=== PATIENT | male | born 1935 | race African-American/Black ===

== ENCOUNTER 2018-10-08 08:10 | Inpatient (IN) | payer MEDICARE, MEDICAID ==
[~2018-10-08] VITALS: Ht 162.6 cm; Wt 58.1 kg
[2018-10-08] MEDS ORDERED: HYDROCODONE/ACETAMINOPHEN 5/325MG TABLET PO ONE (09:15)
[2018-10-08 10:00] LABS: BASOPHILS % 0.6 % (0.0-2.0); EOSINOPHILS % 10.3 % (0.0-5.0); HEMATOCRIT. 37.7 % (42.0-52.0); HEMOGLOBIN. 12.2 g/dL (14.0-18.0); LYMPHOCYTES % 10.6 % (20.0-50.0); MEAN CORPUSCULAR HEMOGLOBIN 33.1 pg (28.0-32.0); MEAN CORPUSCULAR VOLUME 102.1 fL (80.0-94.0); MONOCYTES % 7.3 % (2.0-8.0); NEUTROPHILS % 71.2 % (40.0-76.0); PLATELET 161 x1000/uL (130-400); RED CELL DISTRIBUTION WIDTH 14.7 % (11.6-14.6)
[2018-10-08 10:05] LABS: CHLORIDE 101 mEq/L (98-107)
[2018-10-08 22:00] VITALS: BP 159/65
[2018-10-08] MEDS ORDERED: ONDANSETRON HCL 4MG/2ML INJ IV PRN (22:45)
[2018-10-08] MEDS ORDERED: MORPHINE SULFATE 4 MG/ML CPJ (NOT FOR IM USE) IV PRN (22:45)
[2018-10-08] MEDS ORDERED: HYDROCODONE/ACETAMINOPHEN 5/325MG TABLET PO PRN (22:45)
[2018-10-08] MEDS ORDERED: HYDROCODONE/ACETAMINOPHEN 10/325MG TABLET PO PRN (22:45)
[2018-10-08] MEDS ORDERED: ENOXAPARIN 30MG/0.3ML SYR SUBCUT SCH (23:00)
[2018-10-09 00:24] VITALS: BP 123/58
[2018-10-09 04:00] VITALS: BP 107/53
[2018-10-09 08:00] VITALS: BP 134/56
[2018-10-09 08:02] LABS: BASOPHILS % 1.1 % (0.0-2.0); EOSINOPHILS % 9.3 % (0.0-5.0); HEMATOCRIT. 39.3 % (42.0-52.0); HEMOGLOBIN. 12.6 g/dL (14.0-18.0); MEAN CORPUSCULAR HEMOGLOBIN 32.9 pg (28.0-32.0); MEAN CORPUSCULAR VOLUME 102.4 fL (80.0-94.0); MEAN PLATELET VOLUME 9.1 fl (7.4-10.4); MONOCYTES % 8.1 % (2.0-8.0); NEUTROPHILS % 71.5 % (40.0-76.0); PLATELET 150 x1000/uL (130-400); RED BLOOD CELL COUNT 3.84 mill/uL (4.7-6.1); RED CELL DISTRIBUTION WIDTH 15.2 % (11.6-14.6)
[2018-10-09] MEDS ORDERED: FAMOTIDINE 20MG TABLET PO ONE (09:00)
[2018-10-09] MEDS: FAMOTIDINE 20MG TABLET PO SCH (10:07)
[2018-10-09] MEDS: ENOXAPARIN 30MG/0.3ML SYR SUBCUT SCH (10:08)
[2018-10-09 12:00] VITALS: BP 129/43
[2018-10-09] MEDS ORDERED: VANCOMYCIN 1250MG in DEXTROSE 5% WATER 250ML IV NR (14:00)
[2018-10-09 16:00] VITALS: BP 107/54
[2018-10-09] MEDS ORDERED: VANCOMYCIN 1,250 MG in DEXT 5% WATER 250 ML IV NR (20:00)
[2018-10-09 20:50] VITALS: BP 122/58
[2018-10-10] VITALS: BP 125/61
[2018-10-10 04:00] VITALS: BP 123/51
[2018-10-10 06:10] LABS: BASOPHILS % 1.1 % (0.0-2.0); EOSINOPHILS % 12.5 % (0.0-5.0); HEMATOCRIT. 34.4 % (42.0-52.0); HEMOGLOBIN. 11.3 g/dL (14.0-18.0); LYMPHOCYTES % 17.3 % (20.0-50.0); MEAN CORPUSCULAR HEMOGLOBIN 33.1 pg (28.0-32.0); MEAN PLATELET VOLUME 9.9 fl (7.4-10.4); MONOCYTES % 9.9 % (2.0-8.0); NEUTROPHILS % 59.2 % (40.0-76.0); PLATELET 127 x1000/uL (130-400); RED BLOOD CELL COUNT 3.41 mill/uL (4.7-6.1); RED CELL DISTRIBUTION WIDTH 14.8 % (11.6-14.6)
[2018-10-10 08:00] VITALS: BP 112/62
[2018-10-10] MEDS: ENOXAPARIN 30MG/0.3ML SYR SUBCUT SCH (09:17)
[2018-10-10] MEDS: FAMOTIDINE 20MG TABLET PO SCH (09:17)
[2018-10-10 11:19] VITALS: BP 105/48
[2018-10-10 15:46] VITALS: BP 114/54
[2018-10-10] MEDS ORDERED: GENTAMICIN 120MG PREMIX 100 ML IV NR (18:00)
[2018-10-10 20:00] VITALS: BP 123/49
[2018-10-10] MEDS: LACTULOSE 20G/30ML UDC PO SCH (20:51)
[2018-10-11] VITALS: BP 114/48
[2018-10-11 04:00] VITALS: BP 146/44
[2018-10-11] MEDS: LACTULOSE 20G/30ML UDC PO SCH ×2 (05:50→14:00)
[2018-10-11 07:04] LABS: BASOPHILS % 0.8 % (0.0-2.0); EOSINOPHILS % 9.8 % (0.0-5.0); HEMATOCRIT. 38.3 % (42.0-52.0); HEMOGLOBIN. 12.4 g/dL (14.0-18.0); MEAN CORPUSCULAR VOLUME 102.4 fL (80.0-94.0); MEAN PLATELET VOLUME 9.8 fl (7.4-10.4); MONOCYTES % 9.3 % (2.0-8.0); NEUTROPHILS % 67.1 % (40.0-76.0); PLATELET 141 x1000/uL (130-400); RED BLOOD CELL COUNT 3.74 mill/uL (4.7-6.1); RED CELL DISTRIBUTION WIDTH 14.7 % (11.6-14.6)
[2018-10-11 08:00] VITALS: BP 144/61
[2018-10-11] MEDS: FAMOTIDINE 20MG TABLET PO SCH (08:28)
[2018-10-11] MEDS: ENOXAPARIN 30MG/0.3ML SYR SUBCUT SCH (08:29)
[2018-10-11] MEDS ORDERED: VANCOMYCIN 750 MG PREMIX 150 ML IV NR ×2 (09:00→15:00)
[2018-10-11 11:35] VITALS: BP 128/56
[2018-10-11 16:00] VITALS: BP 132/66
== END 2018-10-11 19:23 | disposition home or self-care (01) | DRG 466 ==
LOC: ER 08:16 → 6WST 11:58 → ENRESERV 20:07
PROVIDERS: ADMIT Internal Medicine Nephrology; ATTEND Internal Medicine Nephrology
PROC: 5A1D70Z Performance of Urinary Filtration, Intermittent, Less than 6 Hours Per Day (ICD-10-PCS; principal; 2018-10-09)
PROC: 5A1D70Z Performance of Urinary Filtration, Intermittent, Less than 6 Hours Per Day (ICD-10-PCS; 2018-10-11)
DX: T82.7XXA Infection and inflammatory reaction due to other cardiac and vascular devices, implants and grafts, initial encounter (principal); I12.0 Hypertensive chronic kidney disease with stage 5 chronic kidney disease or end stage renal disease; E46 Unspecified protein-calorie malnutrition; E87.5 Hyperkalemia; L03.113 Cellulitis of right upper limb; N18.6 End stage renal disease; Y83.2 Surgical operation with anastomosis, bypass or graft as the cause of abnormal reaction of the patient, or of later complication, without mention of misadventure at the time of the procedure; Z99.2 Dependence on renal dialysis; Z91.15 Patient's noncompliance with renal dialysis; Z68.22 Body mass index [BMI] 22.0-22.9, adult; Y92.89 Other specified places as the place of occurrence of the external cause
CPT/HCPCS: 36415; 71045; 80048; 80170; 80202; 83735; 84100; 84484; 93005; 93971; 97162; 99285; J1580; J1650; J3370; J7050; J7060

== ENCOUNTER 2019-12-07 09:16 | Inpatient (IN) | payer MEDICARE, MEDICAID ==
[~2019-12-07] VITALS: Ht 165.1 cm; Wt 56.2 kg
[2019-12-07] MEDS ORDERED: SODIUM CHLORIDE 0.9% 1,000 ML IV ONE (09:23)
[2019-12-07 10:36] LABS: BASOPHILS % 0.6 % (0.0-2.0); EOSINOPHILS % 6.9 % (0.0-5.0); LYMPHOCYTES % 11.6 % (20.0-50.0); MEAN CORPUSCULAR HEMOGLOBIN 32.7 pg (28.0-32.0); MEAN CORPUSCULAR VOLUME 100.9 fL (80.0-94.0); MEAN PLATELET VOLUME 8.2 fl (7.4-10.4); MONOCYTES % 5.2 % (2.0-8.0); NEUTROPHILS % 75.7 % (40.0-76.0); PLATELET 177 x1000/uL (130-400); RED BLOOD CELL COUNT 1.79 mill/uL (4.7-6.1); RED CELL DISTRIBUTION WIDTH 16.4 % (11.6-14.6)
[2019-12-07 10:39] LABS: HEMOGLOBIN. 5.9 g/dL (14.0-18.0)
[2019-12-07 10:42] LABS: CHLORIDE 107 mEq/L (98-107)
[2019-12-07 16:30] VITALS: BP 102/50
[2019-12-07] MEDS ORDERED: ACETAMINOPHEN 325MG TABLET PO PRN (16:45)
[2019-12-07] MEDS ORDERED: GUAIFENESIN 200MG/10ML SUGAR FREE UDC PO PRN (16:45)
[2019-12-07] MEDS ORDERED: IPRATROPIUM/ALBUTEROL 0.5-3(2.5)MG/3ML NEB NEB PRN (16:45)
[2019-12-07] MEDS ORDERED: MORPHINE SULFATE 2 MG/ML CPJ (NOT FOR IM USE) IV PRN (16:45)
[2019-12-07] MEDS ORDERED: NA PHOS,M-B/NA PHOS,DI-BA ENEMA 118ML PR PRN (16:45)
[2019-12-07] MEDS ORDERED: LORAZEPAM 2MG/ML CPJ IV PRN (16:45)
[2019-12-07] MEDS ORDERED: MAGNESIUM/ALUMINUM HYDROXIDE/SIMETHICONE 30ML UDC PO PRN (16:45)
[2019-12-07] MEDS ORDERED: DOCUSATE SODIUM 100MG CAPSULE PO PRN (16:45)
[2019-12-07] MEDS ORDERED: CLONIDINE 0.1MG TABLET PO PRN (16:45)
[2019-12-07] MEDS ORDERED: DIPHENHYDRAMINE 50MG/ML VIAL IV PRN (16:45)
[2019-12-07] MEDS ORDERED: HYDROCODONE/ACETAMINOPHEN 5/325MG TABLET PO PRN (16:45)
[2019-12-07] MEDS ORDERED: ONDANSETRON HCL 4MG/2ML INJ IV PRN (16:45)
[2019-12-07 17:27] LABS: TOTAL IRON BINDING CAPACITY 146 ug/dL (250-450)
[2019-12-07] MEDS: PANTOPRAZOLE SODIUM 40 MG/VIAL IV SCH (17:57)
[2019-12-07] MEDS: SODIUM CHLORIDE 0.45% 1,000 ML IV SCH (17:59)
[2019-12-07] MEDS ORDERED: NIFE20CA MT (18:04)
[2019-12-07 20:00] VITALS: BP 206/56
[2019-12-07 21:40] VITALS: BP 170/36
[2019-12-07 22:10] VITALS: BP 117/34
[2019-12-07 23:10] VITALS: BP 174/45
[2019-12-08] VITALS (11 sets, daily range): BP systolic 119–190; BP diastolic 38–68
[2019-12-08 04:14] LABS: BASOPHILS % 0.8 % (0.0-2.0); EOSINOPHILS % 10.7 % (0.0-5.0); HEMATOCRIT. 22.3 % (42.0-52.0); HEMOGLOBIN. 7.6 g/dL (14.0-18.0); MEAN CORPUSCULAR HEMOGLOBIN 31.7 pg (28.0-32.0); MEAN CORPUSCULAR VOLUME 93.1 fL (80.0-94.0); MEAN PLATELET VOLUME 8.5 fl (7.4-10.4); MONOCYTES % 7.7 % (2.0-8.0); NEUTROPHILS % 64.8 % (40.0-76.0); PLATELET 135 x1000/uL (130-400); RED BLOOD CELL COUNT 2.39 mill/uL (4.7-6.1); RED CELL DISTRIBUTION WIDTH 18.1 % (11.6-14.6)
[2019-12-08 04:28] LABS: CHLORIDE 105 mEq/L (98-107)
[2019-12-08 04:36] LABS: LDL CHOLESTEROL 48 mg/dL (5-100)
[2019-12-08 04:37] LABS: HDL CHOLESTEROL 52 mg/dL (40-59)
[2019-12-08 05:03] LABS: VITAMIN B12 SERUM 810 pg/mL (211-911)
[2019-12-08 05:17] LABS: FERRITIN 629 ng/mL (22-322)
[2019-12-08] MEDS: LEVOTHYROXINE SODIUM 50MCG TABLET PO SCH (08:54)
[2019-12-08] MEDS: PANTOPRAZOLE SODIUM 40 MG/VIAL IV SCH ×2 (08:54→17:32)
[2019-12-08] MEDS: SODIUM CHLORIDE 0.45% 1,000 ML IV SCH (12:42)
[2019-12-08] MEDS: SUCRALFATE 1G TABLET PO SCH ×2 (17:32→21:00)
[2019-12-09] VITALS: BP 160/68
[2019-12-09 01:01] LABS: HEMATOCRIT 28.4 % (42.0-52.0); HEMOGLOBIN 9.6 g/dL (14.0-18.0)
[2019-12-09 01:09] LABS: INR 0.9; PROTHROMBIN TIME 10.3 sec (9.6-11.0)
[2019-12-09 04:00] VITALS: BP 135/56
[2019-12-09] MEDS: SUCRALFATE 1G TABLET PO SCH ×4 (07:40→21:06)
[2019-12-09 08:00] VITALS: BP 151/64
[2019-12-09] MEDS: PANTOPRAZOLE SODIUM 40 MG/VIAL IV SCH ×2 (08:31→17:52)
[2019-12-09] MEDS: LEVOTHYROXINE SODIUM 50MCG TABLET PO SCH (08:31)
[2019-12-09] MEDS: SODIUM CHLORIDE 0.45% 1,000 ML IV SCH (08:32)
[2019-12-09 09:39] LABS: BASOPHILS % 0.5 % (0.0-2.0); EOSINOPHILS % 7.4 % (0.0-5.0); HEMOGLOBIN. 10.9 g/dL (14.0-18.0); LYMPHOCYTES % 11.8 % (20.0-50.0); MEAN CORPUSCULAR HEMOGLOBIN 30.6 pg (28.0-32.0); MEAN CORPUSCULAR VOLUME 90.3 fL (80.0-94.0); MEAN PLATELET VOLUME 8.6 fl (7.4-10.4); MONOCYTES % 6.1 % (2.0-8.0); NEUTROPHILS % 74.2 % (40.0-76.0); PLATELET 168 x1000/uL (130-400); RED BLOOD CELL COUNT 3.55 mill/uL (4.7-6.1); RED CELL DISTRIBUTION WIDTH 20.2 % (11.6-14.6)
[2019-12-09 12:00] VITALS: BP 142/53
[2019-12-09] MEDS ORDERED: FENTANYL CITRATE/PF 50MCG/ML 2ML VIAL ONE (15:24)
[2019-12-09] MEDS ORDERED: MIDAZOLAM HCL 5 MG/5 ML VIAL ONE (15:25)
[2019-12-09] MEDS ORDERED: MIDAZOLAM HCL 5 MG/5 ML VIAL IV PRN (15:33)
[2019-12-09] MEDS ORDERED: FENTANYL CITRATE/PF 50MCG/ML 2ML VIAL IV PRN (15:34)
[2019-12-09 16:00] VITALS: BP 118/65
[2019-12-09 20:00] VITALS: BP 145/59
[2019-12-10] VITALS: BP 139/57
[2019-12-10 04:00] VITALS: BP 141/51
[2019-12-10] MEDS: SUCRALFATE 1G TABLET PO SCH ×2 (07:40→13:00)
[2019-12-10 08:00] VITALS: BP 121/63
[2019-12-10] MEDS: LEVOTHYROXINE SODIUM 50MCG TABLET PO SCH (08:55)
[2019-12-10] MEDS: PANTOPRAZOLE SODIUM 40 MG/VIAL IV SCH (08:56)
[2019-12-10 09:06] LABS: FOLATE HEMATOCRIT 22.7 % (37.5-51.0)
[2019-12-10 11:59] VITALS: BP 136/58
[2019-12-10 13:46] VITALS: BP 136/58
[2019-12-11 13:10] LABS: FOLATE RBC 1441 ng/mL (>498)
== END 2019-12-10 15:43 | disposition home or self-care (01) | DRG 254 ==
LOC: ER 09:16 → EDBEDREQTM 09:27 → 7WST 10:45 → EDBEDREQ 10:47 → EDBEDREQTM 10:47 → ENRESERV 11:01
PROVIDERS: ADMIT Internal Medicine; ATTEND Internal Medicine
PROC: 30233K1 Transfusion of Nonautologous Frozen Plasma into Peripheral Vein, Percutaneous Approach (ICD-10-PCS; principal; 2019-12-07)
PROC: 30233N1 Transfusion of Nonautologous Red Blood Cells into Peripheral Vein, Percutaneous Approach (ICD-10-PCS; 2019-12-07)
PROC: 5A1D70Z Performance of Urinary Filtration, Intermittent, Less than 6 Hours Per Day (ICD-10-PCS; 2019-12-08)
PROC: 0DJ08ZZ Inspection of Upper Intestinal Tract, Via Natural or Artificial Opening Endoscopic (ICD-10-PCS; 2019-12-09)
PROC: 5A1D70Z Performance of Urinary Filtration, Intermittent, Less than 6 Hours Per Day (ICD-10-PCS; 2019-12-10)
DX: K92.1 Melena (principal); E46 Unspecified protein-calorie malnutrition; I12.0 Hypertensive chronic kidney disease with stage 5 chronic kidney disease or end stage renal disease; I24.8 Other forms of acute ischemic heart disease; J84.10 Pulmonary fibrosis, unspecified; N18.6 End stage renal disease; D53.9 Nutritional anemia, unspecified; K57.90 Diverticulosis of intestine, part unspecified, without perforation or abscess without bleeding; Z99.2 Dependence on renal dialysis; R73.9 Hyperglycemia, unspecified; E03.9 Hypothyroidism, unspecified; Z90.3 Acquired absence of stomach [part of]; Z68.20 Body mass index [BMI] 20.0-20.9, adult; Z85.028 Personal history of other malignant neoplasm of stomach
CPT/HCPCS: 36415; 71045; 74176; 80048; 80053; 80061; 82270; 82607; 82728; 82747; 83540; 83550; 84439; 84443; 84484; 85014; 85018; 85025; 85049; 85384; 85651; 86850; 86900; 86920; 86927; 93005; 99285; C9113; J2250; J3010; J7030; P9016; P9017